=== PATIENT | female | born 2000 | race Two or more races ===

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

== ENCOUNTER → 2021-10-22 | Outpatient (REF) | payer OTHER ==
[2021-10-22 16:06] LABS: AMORPHOUS SEDIMENT SMALL (NEGATIVE); APPEARANCE, URINE CLOUDY (CLEAR); BACTERIA, URINE AUTO NEGATIVE (NEGATIVE); BILIRUBIN, URINE AUTO NEGATIVE (NEGATIVE); BLOOD, URINE BLOOD NEGATIVE (NEGATIVE); COLOR, URINE YELLOW (YELLOW); GLUCOSE, URINE (UA) AUTO NEGATIVE (NEGATIVE); KETONE, URINE AUTO NEGATIVE (NEGATIVE); LEUKOCYTE ESTERASE, URINE AUTO NEGATIVE (NEGATIVE); NITRITE, URINE AUTO NEGATIVE (NEGATIVE); PROTEIN, URINE AUTO NEGATIVE (NEGATIVE); RBC, URINE AUTO 1 /HPF (0-3); SPECIFIC GRAVITY URINE AUTO 1.017 (1.002-1.035); SQUAMOUS EPITHELIAL CELL UR AU 2 /HPF (0-6); UROBILINOGEN, URINE AUTO 0.2 mg/dL (0.0-2.0); WBC, URINE AUTO 0 /HPF (0-3)
== END ==
LOC: M SFHCCAPE 13:59
PROVIDERS: ATTEND Physician Assistant
DX: R10.13 Epigastric pain (principal); M54.9 Dorsalgia, unspecified

== ENCOUNTER 2022-09-08 13:58 | Inpatient (IN) | payer MEDICAID, OTHER ==
[~2022-09-08] VITALS: Ht 165.1 cm; Wt 63.6 kg
[2022-09-08 16:57] LABS: HEMATOCRIT 45.1 % (36.0-47.0); HEMOGLOBIN 15.2 g/dl (12.0-15.5); MEAN CORPUSCULAR HGB CONC 33.7 g/dl (32.0-36.5); MEAN CORPUSCULAR VOLUME 86.1 fl (80.0-96.0); PLATELET COUNT, AUTOMATED 268 10^3/uL (150-450); RED BLOOD COUNT 5.24 10^6/uL (4.00-5.40); WHITE BLOOD COUNT 13.1 10^3/uL (4.0-10.0)
[2022-09-08 17:16] LABS: ETHYL ALCOHOL (ETHANOL) 0.004 % (0.000-0.010)
[2022-09-08 17:17] LABS: ACETAMINOPHEN LEVEL < 2.0 UG/ML (10.0-20.0); SALICYLATE LEVEL < 3.0 MG/DL (<30)
[2022-09-08 17:19] LABS: HCG, SERUM QUALITATIVE NEGATIVE (NEGATIVE)
[2022-09-08 17:20] LABS: ALBUMIN 3.9 G/DL (3.2-5.2); ALKALINE PHOSPHATASE 66 U/L (46-116); ALT/SGPT 20 U/L (7.0-40); AST/SGOT 31 U/L (<34); BILIRUBIN,DIRECT 0.3 MG/DL (<0.4); BILIRUBIN,TOTAL 1.1 MG/DL (0.3-1.2); BLOOD UREA NITROGEN 9 MG/DL (9-23); CALCIUM LEVEL 9.7 MG/DL (8.5-10.1); CARBON DIOXIDE LEVEL 25 MMOL/L (20-31); CHLORIDE LEVEL 102 MMOL/L (98-107); CREATININE FOR GFR 0.68 MG/DL (0.55-1.30); GLOMERULAR FILTRATION RATE > 60.0 (>60); GLUCOSE, FASTING 95 MG/DL (60-100); SODIUM LEVEL 136 MMOL/L (136-145); THYROID STIMULATING HORMONE 1.271 uIU/ML (0.55-4.78); TOTAL PROTEIN 7.4 G/DL (5.7-8.2)
[2022-09-08 17:26] LABS: AMPHETAMINES LEVEL URINE NEGATIVE (NEGATIVE); BARBITURATES URINE NEGATIVE (NEGATIVE); BENZODIAZEPINES URINE NEGATIVE (NEGATIVE); CANNABINOIDS URINE NEGATIVE (NEGATIVE); COCAINE METABOLITE URINE NEGATIVE (NEGATIVE); METHADONE URINE NEGATIVE (NEGATIVE); OPIATES URINE NEGATIVE (NEGATIVE); PHENCYCLIDINE URINE NEGATIVE (NEGATIVE)
[2022-09-08] MEDS ORDERED: NICOTINE 21MG/24HR 1 EA TRANSDERMAL TD PRN (18:00)
[2022-09-08] MEDS ORDERED: MOM 30ML SUSPENSION UDC PO PRN (18:00)
[2022-09-08] MEDS ORDERED: traZODone 50 MG TAB PO PRN (18:00)
[2022-09-08] MEDS ORDERED: MAALOX 30 ML SUSP *UDC PO PRN (18:00)
[2022-09-08] MEDS ORDERED: OLANZapine ORAL DISINTEGRATING TAB 5MG PO PRN (18:00)
[2022-09-08] MEDS ORDERED: ACETAMINOPHEN TAB 650MG DOSE (2X325MG) PO PRN (18:00)
[2022-09-08] MEDS ORDERED: HOME MED LIST COMPLETE! XX SCH (20:45)
[2022-09-09 06:19] VITALS: BP 142/74
[2022-09-09 17:49] VITALS: BP 124/85
[2022-09-10 07:06] VITALS: BP 123/75
[2022-09-10] MEDS ORDERED: TRAZ-252 PO (08:50)
[2022-09-10] MEDS ORDERED: HYDR-643 PO (08:50)
== END 2022-09-10 12:12 | disposition home or self-care (01) | DRG 756 ==
LOC: M ED 13:58 → M ED INP 17:57 → M PSY 20:00 → M ED 20:13
PROVIDERS: ADMIT Psychiatry & Neurology Psychiatry; ATTEND Psychiatry & Neurology Psychiatry
DX: F41.9 Anxiety disorder, unspecified (principal); F32.A Depression, unspecified; F43.10 Post-traumatic stress disorder, unspecified; Z63.0 Problems in relationship with spouse or partner; R45.851 Suicidal ideations; F17.290 Nicotine dependence, other tobacco product, uncomplicated; D72.829 Elevated white blood cell count, unspecified; Z91.52 Personal history of nonsuicidal self-harm; Z62.810 Personal history of physical and sexual abuse in childhood; Z91.411 Personal history of adult psychological abuse; Z62.811 Personal history of psychological abuse in childhood; Z81.4 Family history of other substance abuse and dependence; Z20.822 Contact with and (suspected) exposure to COVID-19

== ENCOUNTER → 2023-06-09 | Outpatient (REF) | payer MEDICAID ==
[~2023-06-09] MED LIST: HYDR-643 PO; TRAZ-252 PO
== END ==
LOC: M PLALAB 11:34
PROVIDERS: ATTEND Advanced Practice Midwife
DX: Z34.01 Encounter for supervision of normal first pregnancy, first trimester (principal)

== ENCOUNTER → 2023-06-09 | Outpatient (CLI) | payer MEDICAID, OTHER ==
[2023-06-09 16:04] LABS: HEMATOCRIT 42.6 % (36.0-47.0); HEMOGLOBIN 14.6 g/dl (12.0-15.5); MEAN CORPUSCULAR HEMOGLOBIN 29.6 pg (27.0-33.0); MEAN CORPUSCULAR HGB CONC 34.3 g/dl (32.0-36.5); MEAN CORPUSCULAR VOLUME 86.2 fl (80.0-96.0); PLATELET COUNT, AUTOMATED 248 10^3/uL (150-450); RED BLOOD COUNT 4.94 10^6/uL (4.00-5.40); WHITE BLOOD COUNT 12.8 10^3/uL (4.0-10.0)
[2023-06-09 16:32] LABS: HIV 1&2 SCREEN NEGATIVE (NEGATIVE)
[2023-06-09 16:41] LABS: HEPATITIS C VIRUS ABY INDEX 0.03 INDEX (<0.8)
[2023-06-09 18:58] LABS: CHLAMYDIA DNA AMPLIFICATION NEGATIVE (NEGATIVE); GC DNA AMPLIFICATION NEGATIVE (NEGATIVE)
== END ==
LOC: M PLALAB 11:50
PROVIDERS: ATTEND Advanced Practice Midwife
DX: Z34.01 Encounter for supervision of normal first pregnancy, first trimester (principal)

== ENCOUNTER → 2023-08-18 | Outpatient (REF) | payer MEDICAID, OTHER | LOC: M PLALAB 13:04 | PROVIDERS: ATTEND Advanced Practice Midwife | DX: Z34.82 Encounter for supervision of other normal pregnancy, second trimester (principal) ==

== ENCOUNTER → 2023-08-28 | Outpatient (CLI) | payer MEDICAID, OTHER | LOC: M WHC 13:04 | PROVIDERS: ATTEND Advanced Practice Midwife | DX: Z34.82 Encounter for supervision of other normal pregnancy, second trimester (principal); Z3A.24 24 weeks gestation of pregnancy ==

== ENCOUNTER → 2023-09-17 | Outpatient (REF) | payer MEDICAID, OTHER | LOC: M PLALAB 14:58 | PROVIDERS: ATTEND Advanced Practice Midwife | DX: Z34.82 Encounter for supervision of other normal pregnancy, second trimester (principal); Z87.440 Personal history of urinary (tract) infections ==

== ENCOUNTER → 2023-09-17 | Outpatient (CLI) | payer OTHER ==
[2023-09-17 13:07] LABS: HEMATOCRIT 34.3 % (36.0-47.0); HEMOGLOBIN 11.3 g/dl (12.0-15.5); MEAN CORPUSCULAR HEMOGLOBIN 28.7 pg (27.0-33.0); MEAN CORPUSCULAR HGB CONC 32.9 g/dl (32.0-36.5); MEAN CORPUSCULAR VOLUME 87.1 fl (80.0-96.0); PLATELET COUNT, AUTOMATED 237 10^3/uL (150-450); RED BLOOD COUNT 3.94 10^6/uL (4.00-5.40); WHITE BLOOD COUNT 15.6 10^3/uL (4.0-10.0)
== END ==
LOC: M PLALAB 08:24
PROVIDERS: ATTEND Advanced Practice Midwife
DX: Z34.82 Encounter for supervision of other normal pregnancy, second trimester (principal)

== ENCOUNTER 2023-09-23 12:28 | Outpatient (CLI) | payer OTHER ==
[~2023-09-23] VITALS: Ht 165.1 cm; Wt 164.8 kg
[2023-09-23] MEDS ORDERED: CEPH500C (12:46)
[2023-09-23 12:50] VITALS: BP 127/67
[2023-09-23] MEDS ORDERED: HOME MED LIST COMPLETE! XX SCH (12:50)
[2023-09-23 14:53] VITALS: BP 110/56
[2023-09-23 15:32] VITALS: BP 119/76
== END 2023-09-23 15:40 | disposition home or self-care (01) ==
LOC: M LDO 12:28
PROVIDERS: ATTEND Advanced Practice Midwife
DX: O26.852 Spotting complicating pregnancy, second trimester (principal); Z3A.27 27 weeks gestation of pregnancy
CPT/HCPCS: 59025; 76816; G0463

== ENCOUNTER 2023-10-16 06:43 | Outpatient (CLI) | payer OTHER ==
[~2023-10-16] VITALS: Ht 166.4 cm; Wt 77.5 kg
[~2023-10-16 06:43] MED LIST changes: +CEPH500C
[2023-10-16] MEDS ORDERED: ACET-907 PO (07:01)
[2023-10-16] MEDS ORDERED: HOME MED LIST COMPLETE! XX SCH (07:05)
[2023-10-16] MEDS: ACETAMINOPHEN 500 MG TAB PO ONE (08:00)
[2023-10-16] MEDS ORDERED: MACR100C43 PO (09:11)
[2023-10-16] MEDS: NITROFURANTOIN (MACROBID) 100 MG CAP PO ONE (09:22)
== END 2023-10-16 09:30 | disposition home or self-care (01) ==
LOC: M LDO 06:43
PROVIDERS: ATTEND Obstetrics & Gynecology
DX: O26.893 Other specified pregnancy related conditions, third trimester (principal); R10.2 Pelvic and perineal pain; O23.43 Unspecified infection of urinary tract in pregnancy, third trimester; N39.0 Urinary tract infection, site not specified; Z3A.31 31 weeks gestation of pregnancy
CPT/HCPCS: 59025; 81001; 87088; 87186; G0463

== ENCOUNTER 2023-10-24 07:00 | Inpatient (IN) | payer OTHER ==
[2023-10-24] VITALS (20 sets, daily range): BP systolic 78–146; BP diastolic 45–81
[~2023-10-24] VITALS: Ht 165.1 cm; Wt 80.3 kg
[~2023-10-24 07:00] MED LIST changes: +ACET-907 PO; +MACR100C43 PO
[2023-10-24] MEDS: LACTATED RINGER'S 1000 ML IV STA (08:01)
[2023-10-24 08:32] LABS: APPEARANCE, URINE TURBID (CLEAR); BACTERIA, URINE AUTO 3+ (NEGATIVE); BILIRUBIN, URINE AUTO NEGATIVE (NEGATIVE); BLOOD, URINE BLOOD 1+ (NEGATIVE); COLOR, URINE AMBER (YELLOW); GLUCOSE, URINE (UA) AUTO 1+ mg/dL (NEGATIVE); KETONE, URINE AUTO 1+ mg/dL (NEGATIVE); LEUKOCYTE ESTERASE, URINE AUTO 3+ (NEGATIVE); NITRITE, URINE AUTO NEGATIVE (NEGATIVE); PROTEIN, URINE AUTO 2+ mg/dL (NEGATIVE); RBC, URINE AUTO 5 /HPF (0-3); SPECIFIC GRAVITY URINE AUTO 1.013 (1.002-1.035); SQUAMOUS EPITHELIAL CELL UR AU 9 /HPF (0-6); WBC, URINE AUTO TNTC /HPF (0-3)
[2023-10-24] MEDS: ONDANSETRON 4MG 2ML VIAL IV PRN (09:05)
[2023-10-24] MEDS: LR 1,000 ML IV SCH (09:05)
[2023-10-24] MEDS: ACETAMINOPHEN 500 MG TAB PO PRN (09:12)
[2023-10-24 09:47] LABS: BASO % 0.1 % (0.0-1.0); EOS # 0.1 10^3/uL (0.0-0.5); EOS % 0.4 % (0.0-3.0); HEMATOCRIT 31.8 % (36.0-47.0); HEMOGLOBIN 10.4 g/dl (12.0-15.5); LYMPH # 0.7 10^3/uL (1.5-5.0); MEAN CORPUSCULAR HGB CONC 32.7 g/dl (32.0-36.5); MEAN CORPUSCULAR VOLUME 82.6 fl (80.0-96.0); MONO # 1.1 10^3/uL (0.0-0.8); MONO % 8.2 % (2.0-8.0); NEUTROPHILS # 11.5 10^3/uL (1.5-8.5); NEUTROPHILS % 85.5 % (36.0-66.0); PLATELET COUNT, AUTOMATED 178 10^3/uL (150-450); RED BLOOD COUNT 3.85 10^6/uL (4.00-5.40); WHITE BLOOD COUNT 13.5 10^3/uL (4.0-10.0)
[2023-10-24 10:21] LABS: ALBUMIN 2.3 G/DL (3.2-5.2); ALKALINE PHOSPHATASE 127 U/L (46-116); ALT/SGPT 15 U/L (7.0-40); AST/SGOT 15 U/L (<34); BILIRUBIN,TOTAL 0.8 MG/DL (0.3-1.2); BLOOD UREA NITROGEN < 5 MG/DL (9-23); CARBON DIOXIDE LEVEL 23 MMOL/L (20-31); CHLORIDE LEVEL 107 MMOL/L (98-107); CREATININE FOR GFR 0.51 MG/DL (0.55-1.30); GLOMERULAR FILTRATION RATE > 60.0 (>60); GLUCOSE, FASTING 96 MG/DL (60-100); POTASSIUM SERUM 3.9 MMOL/L (3.5-5.1); SODIUM LEVEL 139 MMOL/L (136-145)
[2023-10-24] MEDS: KETOROLAC 30 MG/ML 1ML VIAL IV ONE (10:22)
[2023-10-24] MEDS: cefTRIAXone SOD 1 GM in D5W MINI-BAG PLUS 50 ML IV SCH (10:50)
[2023-10-24] MEDS ORDERED: HOME MED LIST COMPLETE! XX SCH (17:55)
[2023-10-25] VITALS (11 sets, daily range): BP systolic 87–128; BP diastolic 50–71; TEMP 97–98.2; O2SAT 15–98
[2023-10-25] MEDS ORDERED: KETOROLAC 30 MG/ML 1ML VIAL As Ordered ONE (00:23)
[2023-10-25] MEDS: KETOROLAC 30 MG/ML 1ML VIAL IV ONE ×2 (00:49→15:00)
[2023-10-25] MEDS ORDERED: KCL 20MEQ IN D5/0.45NS 1000ML 1,000 ML IV SCH (08:44)
[2023-10-25 09:22] LABS: BASO % 0.2 % (0.0-1.0); EOS # 0.1 10^3/uL (0.0-0.5); EOS % 0.8 % (0.0-3.0); HEMATOCRIT 28.8 % (36.0-47.0); HEMOGLOBIN 9.4 g/dl (12.0-15.5); LYMPH # 0.7 10^3/uL (1.5-5.0); LYMPH % 5.1 % (24.0-44.0); MEAN CORPUSCULAR HEMOGLOBIN 26.9 pg (27.0-33.0); MEAN CORPUSCULAR HGB CONC 32.6 g/dl (32.0-36.5); MEAN CORPUSCULAR VOLUME 82.3 fl (80.0-96.0); MONO % 8.1 % (2.0-8.0); NEUTROPHILS # 10.7 10^3/uL (1.5-8.5); NEUTROPHILS % 84.6 % (36.0-66.0); PLATELET COUNT, AUTOMATED 174 10^3/uL (150-450); WHITE BLOOD COUNT 12.7 10^3/uL (4.0-10.0)
[2023-10-25 09:49] LABS: ALBUMIN 1.9 G/DL (3.2-5.2); ALKALINE PHOSPHATASE 117 U/L (46-116); ALT/SGPT 17 U/L (7.0-40); AST/SGOT 24 U/L (<34); BILIRUBIN,TOTAL 0.7 MG/DL (0.3-1.2); BLOOD UREA NITROGEN < 5 MG/DL (9-23); CALCIUM LEVEL 8.1 MG/DL (8.5-10.1); CARBON DIOXIDE LEVEL 22 MMOL/L (20-31); CHLORIDE LEVEL 110 MMOL/L (98-107); CREATININE FOR GFR 0.62 MG/DL (0.55-1.30); GLOMERULAR FILTRATION RATE > 60.0 (>60); GLUCOSE, FASTING 126 MG/DL (60-100); POTASSIUM SERUM 3.5 MMOL/L (3.5-5.1); SODIUM LEVEL 140 MMOL/L (136-145); TOTAL PROTEIN 5.3 G/DL (5.7-8.2)
[2023-10-25] MEDS ORDERED: cefTRIAXone SOD 2 GM in D5W MINI-BAG PLUS 50 ML IV SCH (10:00)
[2023-10-25] MEDS: NS 1,000 ML IV ONE ×2 (10:07→11:24)
[2023-10-25] MEDS: cefTRIAXone SOD 1 GM in D5W MINI-BAG PLUS 50 ML IV ONE (10:26)
[2023-10-25] MEDS: KCL 20MEQ IN D5/0.45NS 1000ML 1,000 ML IV SCH (12:35)
[2023-10-25] MEDS: ACETAMINOPHEN *IV* 1,000 MG in IV 1 EA IV ONE (14:27)
[2023-10-25] MEDS: LACTOBACILLUS ACIDOPHILUS CAP (BACID) PO SCH (17:18)
[2023-10-25] MEDS: PHENAZOPYRIDINE 100 MG TAB PO ONE (17:18)
[2023-10-26] VITALS (7 sets, daily range): BP systolic 105–134; BP diastolic 51–75; TEMP 96.9–98.7; O2SAT 94–97
[2023-10-26] MEDS ORDERED: MACR100C43 PO (02:06)
[2023-10-26] MEDS ORDERED: HOME MED LIST COMPLETE! XX SCH (02:10)
[2023-10-26] MEDS: MORPHINE 2 MG/ML 1ML VIAL IV PRN (05:20)
[2023-10-26] MEDS: cefTRIAXone SOD 2 GM in D5W MINI-BAG PLUS 50 ML IV SCH (11:50)
[2023-10-26 12:29] LABS: BASO % 0.2 % (0.0-1.0); EOS # 0.2 10^3/uL (0.0-0.5); EOS % 1.3 % (0.0-3.0); HEMOGLOBIN 9.8 g/dl (12.0-15.5); MEAN CORPUSCULAR HEMOGLOBIN 27.1 pg (27.0-33.0); MEAN CORPUSCULAR HGB CONC 32.7 g/dl (32.0-36.5); MEAN CORPUSCULAR VOLUME 82.9 fl (80.0-96.0); MONO # 1.2 10^3/uL (0.0-0.8); MONO % 9.4 % (2.0-8.0); NEUTROPHILS # 9.8 10^3/uL (1.5-8.5); NEUTROPHILS % 79.3 % (36.0-66.0); PLATELET COUNT, AUTOMATED 197 10^3/uL (150-450); RED BLOOD COUNT 3.62 10^6/uL (4.00-5.40); WHITE BLOOD COUNT 12.4 10^3/uL (4.0-10.0)
[2023-10-26 13:07] LABS: PROCALCITONIN 7.82 ng/ml
[2023-10-26 13:10] LABS: BLOOD UREA NITROGEN < 5 MG/DL (9-23); CALCIUM LEVEL 7.9 MG/DL (8.5-10.1); CARBON DIOXIDE LEVEL 20 MMOL/L (20-31); CHLORIDE LEVEL 110 MMOL/L (98-107); CREATININE FOR GFR 0.52 MG/DL (0.55-1.30); GLOMERULAR FILTRATION RATE > 60.0 (>60); GLUCOSE, FASTING 96 MG/DL (60-100); POTASSIUM SERUM 3.7 MMOL/L (3.5-5.1); SODIUM LEVEL 139 MMOL/L (136-145)
[2023-10-27 04:00] VITALS: BP 118/58; TEMP 97.3; O2SAT 99
[2023-10-27 04:32] LABS: BASO % 0.2 % (0.0-1.0); EOS # 0.3 10^3/uL (0.0-0.5); EOS % 3.4 % (0.0-3.0); HEMATOCRIT 28.1 % (36.0-47.0); HEMOGLOBIN 9.2 g/dl (12.0-15.5); LYMPH # 1.4 10^3/uL (1.5-5.0); LYMPH % 13.7 % (24.0-44.0); MEAN CORPUSCULAR HGB CONC 32.7 g/dl (32.0-36.5); MEAN CORPUSCULAR VOLUME 82.4 fl (80.0-96.0); MONO # 1.2 10^3/uL (0.0-0.8); MONO % 11.8 % (2.0-8.0); NEUTROPHILS % 69.5 % (36.0-66.0); PLATELET COUNT, AUTOMATED 186 10^3/uL (150-450); RED BLOOD COUNT 3.41 10^6/uL (4.00-5.40)
[2023-10-27 05:36] LABS: BLOOD UREA NITROGEN < 5 MG/DL (9-23); CALCIUM LEVEL 8.3 MG/DL (8.5-10.1); CARBON DIOXIDE LEVEL 23 MMOL/L (20-31); CHLORIDE LEVEL 109 MMOL/L (98-107); CREATININE FOR GFR 0.57 MG/DL (0.55-1.30); GLOMERULAR FILTRATION RATE > 60.0 (>60); GLUCOSE, FASTING 83 MG/DL (60-100); POTASSIUM SERUM 3.9 MMOL/L (3.5-5.1); SODIUM LEVEL 141 MMOL/L (136-145)
[2023-10-27 08:07] VITALS: BP 116/71; TEMP 97.2; O2SAT 98
[2023-10-27 14:00] VITALS: BP 133/66; TEMP 97.6; O2SAT 96
[2023-10-27 17:55] VITALS: BP 131/81; O2SAT 96
[2023-10-27] MEDS ORDERED: CEPH250T PO (20:23)
[2023-10-27] MEDS: cefTRIAXone SOD 2GM VIAL IM ONE (20:52)
[2023-10-27] MEDS: LIDOCAINE 1% SDV 5ML VIAL DILUENT ONE (20:53)
[2023-10-29] MEDS ORDERED: OXYC1TAB23 PO (19:24)
== END 2023-10-27 22:13 | disposition home or self-care (01) | DRG 566 ==
LOC: M LDO 07:00 → M LDI 07:30 → M PCU 10-25 11:03 → M OBS 10-27 17:45
PROVIDERS: ADMIT Specialist; ATTEND Obstetrics & Gynecology
DX: O23.03 Infections of kidney in pregnancy, third trimester (principal); Z3A.32 32 weeks gestation of pregnancy; N10 Acute pyelonephritis; A41.9 Sepsis, unspecified organism; O98.813 Other maternal infectious and parasitic diseases complicating pregnancy, third trimester; B96.20 Unspecified Escherichia coli [E. coli] as the cause of diseases classified elsewhere; F43.10 Post-traumatic stress disorder, unspecified; F41.9 Anxiety disorder, unspecified; F32.A Depression, unspecified; O99.343 Other mental disorders complicating pregnancy, third trimester

== ENCOUNTER → 2023-11-25 | Outpatient (REF) | payer OTHER ==
[~2023-11-25] MED LIST changes: +CEPH250T PO; +OXYC1TAB23 PO
== END ==
LOC: M PLALAB 13:34
PROVIDERS: ATTEND Obstetrics & Gynecology
DX: Z36.85 Encounter for antenatal screening for Streptococcus B (principal); Z3A.36 36 weeks gestation of pregnancy

== ENCOUNTER → 2023-12-04 | Outpatient (REF) | payer OTHER | LOC: M SFHCWAGY 09:58 | PROVIDERS: ATTEND Advanced Practice Midwife | DX: Z3A.30 30 weeks gestation of pregnancy (principal) ==

== ENCOUNTER 2023-12-15 02:58 | Inpatient (IN) | payer OTHER ==
[2023-12-15] VITALS (44 sets, daily range): BP systolic 102–169; BP diastolic 54–85; O2SAT 96–97
[~2023-12-15] VITALS: Ht 165.1 cm; Wt 81.1 kg
[2023-12-15] MEDS ORDERED: LIDOCAINE 1% MDV 20ML VIAL INFIL PRN (03:50)
[2023-12-15] MEDS ORDERED: METHYLERGONOVINE MALEATE 0.2MG/ML 1ML VIAL IM PRN (03:50)
[2023-12-15] MEDS: LACTATED RINGER'S 1000 ML IV STA (03:50)
[2023-12-15] MEDS ORDERED: CARBOPROST TROMETHAMINE 250 MCG/ML AMP IM PRN (03:50)
[2023-12-15] MEDS ORDERED: OXYTOCIN DRIP 30 UNITS in IV 1 EA IV PRN (03:50)
[2023-12-15] MEDS ORDERED: OXYTOCIN INJ 10UNITS/ML 1ML VIAL IM PRN (03:50)
[2023-12-15] MEDS ORDERED: TRANEXAMIC ACID INJection 1,000 MG in NS 100 ML IV PRN (03:50)
[2023-12-15 04:39] LABS: HEMATOCRIT 35.6 % (36.0-47.0); HEMOGLOBIN 11.4 g/dl (12.0-15.5); MEAN CORPUSCULAR VOLUME 74.9 fl (80.0-96.0); PLATELET COUNT, AUTOMATED 206 10^3/uL (150-450); RED BLOOD COUNT 4.75 10^6/uL (4.00-5.40); WHITE BLOOD COUNT 11.3 10^3/uL (4.0-10.0)
[2023-12-15] MEDS ORDERED: LR 500 ML IV PRN (04:50)
[2023-12-15] MEDS ORDERED: NALOXONE INJ 0.4MG/1ML VIAL IV PRN (04:50)
[2023-12-15] MEDS ORDERED: ONDANSETRON 4MG 2ML VIAL IV PRN (04:50)
[2023-12-15] MEDS ORDERED: EPIDURAL/PCA KEYS XX PRN (04:50)
[2023-12-15] MEDS ORDERED: ePHEDrine SULFATE 25 MG/5 ML(5MG/ML) SYRINGE IVP PRN (04:50)
[2023-12-15] MEDS ORDERED: diphenhydrAMINE 50MG/ML VIAL IV PRN (04:50)
[2023-12-15] MEDS: FENTANYL/ROPIVACAINE/NACL BAG 100 ML EPIDURAL SCH (04:58)
[2023-12-15 05:32] LABS: HEPATITIS C VIRUS ABY INDEX < 0.02 INDEX (<0.8)
[2023-12-15] MEDS: LR 1,000 ML IV SCH (07:12)
[2023-12-15] MEDS ORDERED: HOME MED LIST COMPLETE! XX SCH (07:30)
[2023-12-15] MEDS: OXYTOCIN DRIP 30 UNITS in IV 1 EA IV SCH (07:57)
[2023-12-15] MEDS ORDERED: DOCUSATE SODIUM 100MG CAPSULE PO PRN (10:35)
[2023-12-15] MEDS ORDERED: MOM 30ML SUSPENSION UDC PO PRN (10:35)
[2023-12-15 10:36] LABS: CORD GAS ABE V -5.7; CORD GAS HCO3 V 21.1 MMOL/L; CORD GAS O2 SAT V 69.2 %; CORD GAS PCO2 V 45.7 mmHg; CORD GAS PH V 7.282 UNITS; CORD GAS SBC V 19.2 MMOL/L; CORD GAS TCO2 V 22.5 MMOL/L
[2023-12-15 10:39] LABS: CORD GAS ABE A -8.4; CORD GAS HCO3 A 18.1 MMOL/L; CORD GAS O2 SAT A 95.5 %; CORD GAS PCO2 A 40.8 mmHg; CORD GAS PH A 7.264 UNITS; CORD GAS PO2 A 63.3 mmHg; CORD GAS SBC A 17.8 MMOL/L; CORD GAS TCO2 A 19.3 MMOL/L
[2023-12-15] MEDS: ACETAMINOPHEN 500 MG TAB PO PRN (17:35)
[2023-12-15] MEDS: IBUPROFEN 800 MG TAB PO PRN (18:33)
[2023-12-15] MEDS: DIBUCAINE 1% OINTMENT 30GM TOP PRN (18:33)
[2023-12-15] MEDS: CEPHALEXIN 250MG CAPSULE PO SCH (21:14)
[2023-12-16 06:00] VITALS: BP 106/59; O2SAT 96
[2023-12-16] MEDS ORDERED: CEPHALEXIN 250MG CAPSULE PO SCH (07:13)
[2023-12-16] MEDS: PRENATAL VITAMINS CHEWABLE TABLET PO SCH (09:25)
[2023-12-17] MEDS ORDERED: MEASLES,MUMPS,RUBELLA VACCINE INJ (MMR-II) SC.IMMUN ONE (09:00)
== END 2023-12-16 14:26 | disposition home or self-care (01) | DRG 560 ==
LOC: M LDO 02:58 → M LDI 03:39 → M OBS 13:26
PROVIDERS: ADMIT Advanced Practice Midwife; ATTEND Advanced Practice Midwife
PROC: 10E0XZZ Delivery of Products of Conception, External Approach (ICD-10-PCS; principal; 2023-12-15)
DX: O80 Encounter for full-term uncomplicated delivery (principal); Z37.0 Single live birth; Z3A.39 39 weeks gestation of pregnancy

== ENCOUNTER → 2024-11-08 | Outpatient (REF) | payer OTHER | LOC: M SFHCWAGY 14:59 | PROVIDERS: ATTEND Obstetrics & Gynecology | DX: R33.9 Retention of urine, unspecified (principal) ==